=== PATIENT | female | born 1985 | race Caucasian/White ===

== ENCOUNTER 2024-02-14 15:24 | Emergency (ER) | payer OTHER ==
[~2024-02-14] VITALS: Ht 167.6 cm; Wt 93.8 kg
[2024-02-14] MEDS ORDERED: LEVO112T2 (15:49)
[2024-02-14] MEDS ORDERED: IBUP200T46 PO (15:50)
[2024-02-14] MEDS ORDERED: DOXY-440 PO (15:50)
[2024-02-14] MEDS ORDERED: PRED20TA PO (19:32)
[2024-02-14] MEDS ORDERED: REFROIN OP (19:32)
[2024-02-14] MEDS: LIDOCAINE 1% SDV 5ML VIAL DILUENT ONE (19:41)
[2024-02-14] MEDS: cefTRIAXone SOD 1GM VIAL IM ONE (19:41)
[2024-02-14] MEDS: predniSONE 20 MG TAB PO ONE (19:42)
[2024-02-14 20:15] VITALS: BP 137/71; TEMP 98.2; O2SAT 100
== END 2024-02-14 20:19 | disposition home or self-care (01) ==
LOC: M ED 15:24
DX: G51.0 Bell's palsy (principal); E03.9 Hypothyroidism, unspecified; Z79.1 Long term (current) use of non-steroidal anti-inflammatories (NSAID); Z79.2 Long term (current) use of antibiotics; Z79.52 Long term (current) use of systemic steroids; Z79.899 Other long term (current) drug therapy
CPT/HCPCS: 70450; 96372; 99283; J0696; J7512